=== PATIENT | male | born 1955 ===

== ENCOUNTER 2022-11-09 09:54 | Outpatient (CLI) | payer BC | END 2022-11-09 09:59 | disposition home or self-care (01) | LOC: RAD 09:54 | PROVIDERS: ATTEND Specialist | DX: E13.621 Other specified diabetes mellitus with foot ulcer (principal) ==

== ENCOUNTER 2022-11-11 13:11 | Inpatient (IN) | payer OTHER, BC ==
[~2022-11-11] VITALS: Ht 198.1 cm; Wt 83.9 kg
[2022-11-11] MEDS ORDERED: JARDIANCE25 MG PO (13:23)
[2022-11-11] MEDS ORDERED: METFORMIN HCL1000 M3 PO (13:23)
[2022-11-11] MEDS ORDERED: SIMVASTATIN10 MG PO (13:24)
[2022-11-11] MEDS ORDERED: RAMIPRIL5 MG PO (13:24)
[2022-11-11] MEDS ORDERED: CIPROFLOXACIN750 MG PO (13:24)
[2022-11-11] MEDS ORDERED: TAMSULOSIN HCL0.4 MG PO (13:25)
[2022-11-11] MEDS ORDERED: LOTEMAX SM5 GM OP (13:25)
== END 2022-11-24 17:48 | disposition home or self-care (01) | DRG 623 ==
LOC: ER 13:11 → MEDI 17:41 → SEC-K 17:41 → MEDI 18:29
PROVIDERS: ADMIT Specialist; ATTEND Specialist
PROC: BQ3LZZZ Magnetic Resonance Imaging (MRI) of Right Foot (ICD-10-PCS; 2022-11-12)
PROC: 0JBQ0ZZ Excision of Right Foot Subcutaneous Tissue and Fascia, Open Approach (ICD-10-PCS; principal; 2022-11-14)
PROC: 0JDQ0ZZ Extraction of Right Foot Subcutaneous Tissue and Fascia, Open Approach (ICD-10-PCS; 2022-11-18)
DX: E11.621 Type 2 diabetes mellitus with foot ulcer (principal); E11.52 Type 2 diabetes mellitus with diabetic peripheral angiopathy with gangrene; L97.518 Non-pressure chronic ulcer of other part of right foot with other specified severity; L03.031 Cellulitis of right toe; B95.62 Methicillin resistant Staphylococcus aureus infection as the cause of diseases classified elsewhere; Z79.84 Long term (current) use of oral hypoglycemic drugs; Z79.4 Long term (current) use of insulin
CPT/HCPCS: 73722